=== PATIENT | male | born 1960 | race Caucasian/White ===

== ENCOUNTER 2017-06-02 19:41 | Emergency (ER) | payer OTHER ==
[~2017-06-02 19:41] MED LIST: BACLOFEN20 MG PO; FER300 PO; HYDROXYZINE HYD25 MG PO; LASIX20 MG PO; LISINOPRIL20 MG PO; MELOXICAM7.5 M1 PO; MIRTAZAPINE15 M2 PO; RISPERIDONE3 M2 PO; TRAMADOL HCL50 MG PO; VITC PO
== END 2017-06-02 23:03 | disposition other institution (70) ==
LOC: ED 19:41
DX: Z02.89 Encounter for other administrative examinations (principal)

== ENCOUNTER 2017-06-02 19:41 | Emergency (ER) | payer MEDICAID ==
[2017-06-02 23:03] VITALS: BP 133/92
== END 2017-06-02 23:06 | disposition other institution (70) ==
LOC: ED 19:41
DX: I10 Essential (primary) hypertension (principal); J45.909 Unspecified asthma, uncomplicated; M19.90 Unspecified osteoarthritis, unspecified site; B19.20 Unspecified viral hepatitis C without hepatic coma; Z86.79 Personal history of other diseases of the circulatory system
CPT/HCPCS: J1885; J3490

== ENCOUNTER 2018-05-30 13:53 | Inpatient (IN) | payer OTHER ==
[~2018-05-30] VITALS: Ht 162.6 cm; Wt 69.2 kg
[~2018-05-30 13:53] MED LIST changes: -BACLOFEN20 MG PO
[2018-05-30 13:59] VITALS: Ht 162.6 cm; Wt 69.2 kg
[2018-05-30 15:15] LABS: microscopic required? NO
[2018-05-30 15:27] LABS: UA SPECIFIC GRAVITY 1.015 (1.005-1.035); urine erythrocyte NEGATIVE (NEGATIVE)
[2018-05-30 15:32] LABS: CARBON DIOXIDE 21.9 mmol/L (21-32); CHLORIDE SERUM 101 mmol/L (98-107); CREATININE SERUM 0.8 mg/dL (0.7-1.3); GFR1 > 60 mL/min; GLUCOSE SERUM 92 mg/dL (74-106); POTASSIUM SERUM 4.4 mmol/L (3.5-5.1); SODIUM SERUM 136 mmol/L (136-145)
[2018-05-30 15:34] LABS: AMPHETAMINE QUAL UR NONE DETECTED (See below)
[2018-05-30 15:35] LABS: BASOPHIL % 0.4 % (0-2); PLATELET COUNT 446 x10^3mcL (130-400); RED CELL DISTRIBUTION WIDTH 16.2 % (11.5-14.5)
[2018-05-30 15:38] LABS: ALBUMIN 3.6 g/dL (3.4-5.0); ALKALINE PHOSPHATASE 106 U/L (46-116); ALT/SGPT 79 U/L (16-63); AST/SGOT 81 U/L (15-37); BILIRUBIN TOTAL 0.8 mg/dL (0.20-1.00); TOTAL PROTEIN, SERUM 7.8 g/dL (6.4-8.2)
[2018-05-30 22:00] VITALS: BP 145/74
[2018-05-31 05:47] VITALS: BP 134/76
[2018-05-31 07:47] LABS: CALCIUM 8.4 mg/dL (8.5-10.1); CHLORIDE SERUM 108 mmol/L (98-107); CREATININE SERUM 0.8 mg/dL (0.7-1.3); GFR1 > 60 mL/min; GLUCOSE SERUM 69 mg/dL (74-106); MAGNESIUM 2.2 mg/dL (1.8-2.4); POTASSIUM SERUM 4.7 mmol/L (3.5-5.1); SODIUM SERUM 142 mmol/L (136-145)
[2018-05-31 08:42] VITALS: BP 130/82
[2018-05-31 09:44] LABS: BASOPHIL % 0.5 % (0-2); PLATELET COUNT 399 x10^3mcL (130-400)
[2018-05-31 09:45] LABS: RED CELL DISTRIBUTION WIDTH 16.1 % (11.5-14.5)
[2018-05-31] MEDS ORDERED: ZESTRIL20 MG PO (11:39)
[2018-05-31] MEDS ORDERED: OMEPRAZOLE40 M1 PO (11:39)
[2018-05-31] MEDS ORDERED: IBUPROFEN400 MG PO (11:40)
[2018-05-31] MEDS ORDERED: CLARITIN10 MG PO (11:40)
[2018-05-31] MEDS ORDERED: PERMETHRIN5% TOP (11:41)
[2018-05-31] MEDS ORDERED: MIRTAZAPINE15 M2 PO (11:41)
[2018-05-31 15:49] VITALS: BP 131/93
[2018-05-31 19:30] VITALS: BP 118/72
[2018-05-31 23:30] VITALS: BP 118/72
[2018-06-01 05:49] VITALS: BP 129/84
[2018-06-01 09:45] VITALS: BP 116/67
[2018-06-01] MEDS ORDERED: DOX100 PO (12:00)
[2018-06-01 17:10] VITALS: BP 112/77
[2018-06-01 19:16] VITALS: BP 113/74
[2018-06-02 06:33] VITALS: BP 120/72
[2018-06-02 08:30] VITALS: BP 100/62
[2018-06-02 16:15] VITALS: BP 107/74
[2018-06-02 21:00] VITALS: BP 120/76
[2018-06-03 06:00] VITALS: BP 129/82
[2018-06-03 08:56] VITALS: BP 137/87
[2018-06-03 17:54] VITALS: BP 111/63
[2018-06-03 21:03] VITALS: BP 109/77
[2018-06-04 05:41] VITALS: BP 115/66
[2018-06-04 07:19] LABS: ALKALINE PHOSPHATASE 88 U/L (46-116); ALT/SGPT 51 U/L (16-63); AST/SGOT 37 U/L (15-37); BILIRUBIN TOTAL 0.4 mg/dL (0.20-1.00); CALCIUM 8.7 mg/dL (8.5-10.1); CARBON DIOXIDE 26.9 mmol/L (21-32); CHLORIDE SERUM 103 mmol/L (98-107); CREATININE SERUM 0.8 mg/dL (0.7-1.3); GFR1 > 60 mL/min; GLUCOSE SERUM 87 mg/dL (74-106); PHOSPHOROUS 4.1 mg/dL (2.5-4.9); POTASSIUM SERUM 4.8 mmol/L (3.5-5.1); SODIUM SERUM 139 mmol/L (136-145)
[2018-06-04 07:41] LABS: BASOPHIL % 0.8 % (0-2); PLATELET COUNT 387 x10^3mcL (130-400); RED CELL DISTRIBUTION WIDTH 16.6 % (11.5-14.5)
[2018-06-04 09:23] VITALS: BP 129/88
[2018-06-04 17:29] VITALS: BP 99/65
[2018-06-04 23:05] VITALS: BP 97/62
[2018-06-05 06:07] VITALS: BP 135/67
[2018-06-05 09:38] VITALS: BP 113/65
[2018-06-05 17:27] VITALS: BP 128/77
[2018-06-05 23:15] VITALS: BP 110/80
[2018-06-06 06:00] VITALS: BP 106/71
[2018-06-06 10:06] VITALS: BP 107/66
[2018-06-07 06:29] VITALS: BP 107/63
[2018-06-07 09:18] VITALS: BP 112/69
[2018-06-07 13:09] VITALS: BP 112/69
[2018-06-07] MEDS ORDERED: BACLOFEN20 MG PO (13:23)
[2018-06-07 17:27] VITALS: BP 107/66
[2018-06-07 20:56] VITALS: BP 99/61
[2018-06-08 05:24] VITALS: BP 99/69
[2018-06-08 08:15] VITALS: BP 113/81
[2018-06-08 13:05] VITALS: BP 113/81
== END 2018-06-08 14:49 | DRG 145 ==
LOC: ED 13:53 → MU 17:59
PROVIDERS: Internal Medicine Pulmonary Disease; Specialist
DX: J20.9 Acute bronchitis, unspecified (principal); R45.851 Suicidal ideations; F25.0 Schizoaffective disorder, bipolar type; F31.30 Bipolar disorder, current episode depressed, mild or moderate severity, unspecified; I10 Essential (primary) hypertension; S50.812A Abrasion of left forearm, initial encounter; X78.1XXA Intentional self-harm by knife, initial encounter; F15.10 Other stimulant abuse, uncomplicated; F17.210 Nicotine dependence, cigarettes, uncomplicated; B18.2 Chronic viral hepatitis C; F10.10 Alcohol abuse, uncomplicated; J45.909 Unspecified asthma, uncomplicated; F41.9 Anxiety disorder, unspecified; M19.90 Unspecified osteoarthritis, unspecified site; Y90.9 Presence of alcohol in blood, level not specified; Y92.012 Bathroom of single-family (private) house as the place of occurrence of the external cause; Z59.0 Homelessness; Z88.2 Allergy status to sulfonamides; Z88.1 Allergy status to other antibiotic agents; Z90.49 Acquired absence of other specified parts of digestive tract; Z90.81 Acquired absence of spleen; Z91.5 Personal history of self-harm; Y93.89 Activity, other specified; Y99.8 Other external cause status; Z79.899 Other long term (current) drug therapy
CPT/HCPCS: 82962; G0480; Q0092

== ENCOUNTER 2018-06-24 14:44 | Inpatient (IN) | payer OTHER ==
[~2018-06-24] VITALS: Ht 162.6 cm; Wt 68.9 kg
[~2018-06-24 14:44] MED LIST changes: +BACLOFEN20 MG PO; +CLARITIN10 MG PO; +DOX100 PO; +IBUPROFEN400 MG PO; +OMEPRAZOLE40 M1 PO; +PERMETHRIN5% TOP; +ZESTRIL20 MG PO
[2018-06-24 15:07] VITALS: Ht 162.6 cm; Wt 68.9 kg
[2018-06-24 16:05] LABS: microscopic required? NO
[2018-06-24 16:07] LABS: BASOPHIL % 0.4 % (0-2)
[2018-06-24 16:08] LABS: CALCIUM 8.7 mg/dL (8.5-10.1); CARBON DIOXIDE 26.5 mmol/L (21-32); CHLORIDE SERUM 104 mmol/L (98-107); CREATININE SERUM 0.7 mg/dL (0.7-1.3); GFR1 > 60 mL/min; GLUCOSE SERUM 91 mg/dL (74-106); POTASSIUM SERUM 4.2 mmol/L (3.5-5.1); SODIUM SERUM 138 mmol/L (136-145)
[2018-06-24 16:09] LABS: PLATELET COUNT 435 x10^3mcL (130-400); RED CELL DISTRIBUTION WIDTH 15.8 % (11.5-14.5)
[2018-06-24 16:13] LABS: ALKALINE PHOSPHATASE 82 U/L (46-116); ALT/SGPT 65 U/L (16-63); AST/SGOT 73 U/L (15-37); BILIRUBIN TOTAL 0.6 mg/dL (0.20-1.00); TOTAL PROTEIN, SERUM 6.9 g/dL (6.4-8.2)
[2018-06-24 16:15] LABS: ALBUMIN 3.2 g/dL (3.4-5.0)
[2018-06-24 16:32] LABS: urine erythrocyte NEGATIVE (NEGATIVE)
[2018-06-24 16:41] LABS: AMPHETAMINE QUAL UR NONE DETECTED (See below)
[2018-06-25] MEDS ORDERED: SOMA350 MG PO (12:24)
[2018-06-25] MEDS ORDERED: RISPERDAL0.25 MG (12:24)
[2018-06-25 14:26] VITALS: BP 147/100
[2018-06-25 17:40] VITALS: BP 130/77
[2018-06-25 19:57] VITALS: BP 120/72
[2018-06-26 05:58] VITALS: BP 153/69
[2018-06-26 07:58] VITALS: BP 134/89
[2018-06-26 11:54] VITALS: BP 134/89
[2018-06-26 12:16] VITALS: BP 119/85
== END 2018-06-26 12:53 | DRG 756 ==
LOC: ED 14:44 → MU 06-25 12:34 → EDBEDREQ 06-25 12:37 → MU 06-25 14:00
PROVIDERS: Emergency Medicine
DX: R45.851 Suicidal ideations (principal); F25.0 Schizoaffective disorder, bipolar type; I10 Essential (primary) hypertension; M19.90 Unspecified osteoarthritis, unspecified site; F17.210 Nicotine dependence, cigarettes, uncomplicated; F10.20 Alcohol dependence, uncomplicated; B19.20 Unspecified viral hepatitis C without hepatic coma; J30.9 Allergic rhinitis, unspecified; Z59.0 Homelessness; Z91.5 Personal history of self-harm; Z91.14 Patient's other noncompliance with medication regimen; Z90.49 Acquired absence of other specified parts of digestive tract; Z90.81 Acquired absence of spleen; Z88.2 Allergy status to sulfonamides; Z88.1 Allergy status to other antibiotic agents
CPT/HCPCS: G0480

== ENCOUNTER 2018-07-05 23:14 | Emergency (ER) | payer OTHER ==
[~2018-07-05] VITALS: Ht 162.6 cm; Wt 60.8 kg
[~2018-07-05 23:14] MED LIST changes: +RISPERDAL0.25 MG; +SOMA350 MG PO
[2018-07-05 23:24] VITALS: Ht 162.6 cm; Wt 60.8 kg
[2018-07-06 00:05] LABS: CALCIUM 8.5 mg/dL (8.5-10.1); CARBON DIOXIDE 24.4 mmol/L (21-32); CHLORIDE SERUM 105 mmol/L (98-107); CREATININE SERUM 0.8 mg/dL (0.7-1.3); GFR1 > 60 mL/min; GLUCOSE SERUM 81 mg/dL (74-106); POTASSIUM SERUM 4.4 mmol/L (3.5-5.1); SODIUM SERUM 141 mmol/L (136-145)
[2018-07-06 00:16] LABS: BASOPHIL % 0.9 % (0-2); PLATELET COUNT 587 x10^3mcL (130-400); RED CELL DISTRIBUTION WIDTH 14.9 % (11.5-14.5)
[2018-07-06 01:49] VITALS: BP 136/95
== END 2018-07-06 01:49 | disposition home or self-care (01) ==
LOC: ED 23:14
PROVIDERS: Emergency Medicine
DX: S20.219A Contusion of unspecified front wall of thorax, initial encounter (principal); S00.81XA Abrasion of other part of head, initial encounter; S09.8XXA Other specified injuries of head, initial encounter; F10.129 Alcohol abuse with intoxication, unspecified; F31.9 Bipolar disorder, unspecified; I10 Essential (primary) hypertension; Z90.89 Acquired absence of other organs; Z90.49 Acquired absence of other specified parts of digestive tract; Z86.19 Personal history of other infectious and parasitic diseases; Z88.2 Allergy status to sulfonamides; Z88.1 Allergy status to other antibiotic agents; X58.XXXA Exposure to other specified factors, initial encounter; Y93.89 Activity, other specified; Y92.89 Other specified places as the place of occurrence of the external cause; Y99.8 Other external cause status
CPT/HCPCS: 36415; G0480

== ENCOUNTER 2018-07-08 09:05 | Emergency (ER) | payer OTHER ==
[~2018-07-08] VITALS: Ht 162.6 cm; Wt 72.1 kg
[2018-07-08 09:16] VITALS: Ht 162.6 cm; Wt 72.1 kg
[2018-07-08 11:35] VITALS: BP 132/95
== END 2018-07-08 11:35 | disposition home or self-care (01) ==
LOC: ED 09:05
DX: S60.222A Contusion of left hand, initial encounter (principal); M19.032 Primary osteoarthritis, left wrist; F17.210 Nicotine dependence, cigarettes, uncomplicated; J45.909 Unspecified asthma, uncomplicated; I10 Essential (primary) hypertension; F31.9 Bipolar disorder, unspecified; Z90.89 Acquired absence of other organs; Z90.49 Acquired absence of other specified parts of digestive tract; Z88.2 Allergy status to sulfonamides; Z88.1 Allergy status to other antibiotic agents; X58.XXXA Exposure to other specified factors, initial encounter; Y93.89 Activity, other specified; Y92.89 Other specified places as the place of occurrence of the external cause; Y99.8 Other external cause status
CPT/HCPCS: 90714; J1885; Q0092

== ENCOUNTER 2018-09-06 19:51 | Inpatient (IN) | payer OTHER ==
[~2018-09-06] VITALS: Ht 162.6 cm; Wt 69.9 kg
[2018-09-06 20:03] VITALS: Ht 162.6 cm; Wt 69.9 kg
[2018-09-06 22:49] LABS: BASOPHIL % 1.2 % (0-2)
[2018-09-06 22:53] LABS: PLATELET COUNT 487 x10^3mcL (130-400); RED CELL DISTRIBUTION WIDTH 16.3 % (11.5-14.5)
[2018-09-06 23:13] LABS: CALCIUM 9.9 mg/dL (8.5-10.1); CARBON DIOXIDE 24.7 mmol/L (21-32); CHLORIDE SERUM 102 mmol/L (98-107); CREATININE SERUM 0.9 mg/dL (0.7-1.3); GFR1 > 60 mL/min; GLUCOSE SERUM 107 mg/dL (74-106); POTASSIUM SERUM 5.4 mmol/L (3.5-5.1); SODIUM SERUM 139 mmol/L (136-145)
[2018-09-06 23:17] LABS: ALBUMIN 3.8 g/dL (3.4-5.0); ALKALINE PHOSPHATASE 101 U/L (46-116); ALT/SGPT 47 U/L (16-63); AST/SGOT 37 U/L (15-37); BILIRUBIN TOTAL 0.4 mg/dL (0.20-1.00); LIPASE 101 IU/L (73-393); TOTAL PROTEIN, SERUM 7.7 g/dL (6.4-8.2)
[2018-09-07 09:36] VITALS: BP 123/68
[2018-09-07 12:57] VITALS: BP 138/81
[2018-09-07 17:36] VITALS: BP 132/84
[2018-09-07 20:36] VITALS: BP 128/84
[2018-09-08 05:21] VITALS: BP 125/75
[2018-09-08 07:19] LABS: BASOPHIL % 0.4 % (0-2)
[2018-09-08 07:45] LABS: PLATELET COUNT 441 x10^3mcL (130-400); RED CELL DISTRIBUTION WIDTH 16.3 % (11.5-14.5)
[2018-09-08 08:06] LABS: CALCIUM 8.4 mg/dL (8.5-10.1); CHLORIDE SERUM 107 mmol/L (98-107); CREATININE SERUM 0.6 mg/dL (0.7-1.3); GFR1 > 60 mL/min; GLUCOSE SERUM 91 mg/dL (74-106); POTASSIUM SERUM 4.3 mmol/L (3.5-5.1); SODIUM SERUM 140 mmol/L (136-145)
[2018-09-08 10:14] VITALS: BP 132/86
[2018-09-08 14:19] VITALS: BP 152/87
[2018-09-08 17:21] VITALS: BP 148/85
[2018-09-08 21:50] VITALS: BP 132/85
[2018-09-09 05:32] VITALS: BP 128/87
[2018-09-09 06:58] LABS: BASOPHIL % 0.5 % (0-2)
[2018-09-09 07:13] LABS: PLATELET COUNT 458 x10^3mcL (130-400); RED CELL DISTRIBUTION WIDTH 16.4 % (11.5-14.5)
[2018-09-09 07:19] LABS: CALCIUM 8.4 mg/dL (8.5-10.1); CARBON DIOXIDE 24.8 mmol/L (21-32); CHLORIDE SERUM 106 mmol/L (98-107); CREATININE SERUM 0.8 mg/dL (0.7-1.3); GFR1 > 60 mL/min; GLUCOSE SERUM 93 mg/dL (74-106); POTASSIUM SERUM 4.3 mmol/L (3.5-5.1); SODIUM SERUM 139 mmol/L (136-145)
[2018-09-09 10:08] VITALS: BP 131/76
[2018-09-09 13:14] VITALS: BP 131/76
[2018-09-09 14:27] VITALS: BP 114/68
[2018-09-09 16:13] VITALS: BP 113/65
[2018-09-09 20:28] VITALS: BP 111/66
[2018-09-10 04:48] VITALS: BP 116/64
[2018-09-10 08:22] VITALS: BP 133/76
[2018-09-10 11:53] VITALS: BP 123/77
[2018-09-10 12:57] VITALS: BP 123/77
== END 2018-09-10 14:08 | disposition home or self-care (01) | DRG 247 ==
LOC: ED 19:51 → DU 09-07 06:20
PROVIDERS: Emergency Medicine; ADMIT Internal Medicine
PROC: 0D9670Z Drainage of Stomach with Drainage Device, Via Natural or Artificial Opening (ICD-10-PCS; principal; 2018-09-07)
DX: K56.699 Other intestinal obstruction unspecified as to partial versus complete obstruction (principal); B15.9 Hepatitis A without hepatic coma; F17.210 Nicotine dependence, cigarettes, uncomplicated; F31.9 Bipolar disorder, unspecified; J45.909 Unspecified asthma, uncomplicated; I25.10 Atherosclerotic heart disease of native coronary artery without angina pectoris; K59.00 Constipation, unspecified; I10 Essential (primary) hypertension; K27.9 Peptic ulcer, site unspecified, unspecified as acute or chronic, without hemorrhage or perforation; M19.90 Unspecified osteoarthritis, unspecified site; F32.9 Major depressive disorder, single episode, unspecified; B18.2 Chronic viral hepatitis C; Z88.2 Allergy status to sulfonamides; Z88.1 Allergy status to other antibiotic agents; Z90.49 Acquired absence of other specified parts of digestive tract; Z90.81 Acquired absence of spleen; Z87.11 Personal history of peptic ulcer disease; Z59.0 Homelessness
CPT/HCPCS: C9113; J7030; Q0092; Q0162

== ENCOUNTER 2019-06-07 17:02 | Inpatient (IN) | payer OTHER ==
[~2019-06-07] VITALS: Ht 165.1 cm; Wt 65.0 kg
[2019-06-07 17:04] VITALS: Ht 165.1 cm; Wt 65.0 kg
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
--- NOTE | 2019-06-07 17:51 | NUR ---
MD DAMON AT BEDSIDE PERFORMING MSE
--- NOTE | 2019-06-07 18:21 | NUR ---
PT STS HAS MEANS TO PAY FOR TAXI IF D/C D/T ''NO ONE BEING ABLE TO DRIVE HIM HOME''
--- NOTE | 2019-06-07 18:27 | NUR ---
350 ML OF YELLOW CLEAR URINE NOTED IN URINAL
--- NOTE | 2019-06-07 18:50 | NUR ---
MD DAMON AT BEDSIDE DISCUSSING PLAN OF CARE
--- NOTE | 2019-06-07 19:00 | NUR ---
BLADDER SCAN TX COMPLETED PER MD DAMON VERBAL ORDER S/P VOID, RESIDUAL URINE APPROX 96 CC, MD DAMON MADE AWARE
--- NOTE | 2019-06-07 19:01 | NUR ---
PT ROADTESTED, PT AMUBLATORY WITH STEADY GAIT WITH USE OF CANE, PER PT "JUST HURTS MY BACK TO WALK" MD DAMON MADE AWARE
--- NOTE | 2019-06-07 19:07 | NUR ---
PER LABOR COMMISSIONER, Nancy GARCIA HAND 18 G IV "CAME OUT DURING TRANSFER FROM ED [facility] TO CT BED, IV D/C, ANGIO CATH INTACT, BLEEDING CONTROLLED
--- NOTE | 2019-06-07 19:08 | NUR ---
REPORT GIVEN TO KRISTY QUEVEDO RN TO RESUME CARE OF PT AT THIS TIME
[2019-06-07 19:22] LABS: BASOPHIL % 0.6 % (0-2)
[2019-06-07 19:24] LABS: RED CELL DISTRIBUTION WIDTH 15.9 % (11.5-14.5)
[2019-06-07 19:25] LABS: PLATELET COUNT 673 x10^3mcL (130-400)
[2019-06-07 19:30] LABS: CALCIUM 7.7 mg/dL (8.5-10.1); CARBON DIOXIDE 27.1 mmol/L (21-32); CHLORIDE SERUM 104 mmol/L (98-107); CREATININE SERUM 0.8 mg/dL (0.7-1.3); GFR1 > 60 mL/min; GLUCOSE SERUM 87 mg/dL (74-106); SODIUM SERUM 137 mmol/L (136-145)
--- NOTE | 2019-06-07 19:30 | NUR ---
FIRST CONTACT WITH PT AT THIS TIME. PT RESTING IN GURNEY WITH EYES CLOSED; AROUSABLE TO VERBAL STIMULI. RESP E/U, APPEARS IN NO ACUTE DISTRESS. VSS. PT RATES PAIN 0/10 AT THIS TIME; AWAITING CT SCAN. BLANKET GIVEN FOR COMFORT.
[2019-06-07 19:34] LABS: ALKALINE PHOSPHATASE 113 U/L (46-116); ALT/SGPT 51 U/L (16-63); AST/SGOT 40 U/L (15-37); BILIRUBIN TOTAL 0.21 mg/dL (0.20-1.00)
[2019-06-07 19:35] LABS: ALBUMIN 2.8 g/dL (3.4-5.0); TOTAL PROTEIN, SERUM 5.7 g/dL (6.4-8.2)
--- NOTE | 2019-06-07 19:44 | NUR ---
PT TO RADIOLOGY FOR CT SCAN VIA WC
--- NOTE | 2019-06-07 19:51 | NUR ---
PT RETURNED FROM CT
--- NOTE | 2019-06-07 20:16 | NUR ---
PT ENDORSES DARK TARRY STOOL X2 WEEKS
--- NOTE | 2019-06-07 20:17 | NUR ---
DR LOPEZ AT BEDSIDE DISCUSSING PLAN OF CARE WITH PT
--- NOTE | 2019-06-07 21:00 | NUR ---
PCXR IN PROGRESS AT BEDSIDE
--- NOTE | 2019-06-07 21:30 | NUR ---
RECEIVED PT FROM ED VIA WHEELCHAIR, CAME IN DUE TO LOWER BACK PAIN. AAOX4. STATED THAT HE HAS MILD HEADACHE AND DIZZINESS. ABLE TO FOLLOW COMMANDS. NO SOB NOTED, LUNG SOUNDS CTA. DENIES CHEST PAIN/PRESSURE, DC=75. DENIES ABDOMINAL PAIN/NAUSEA/VOMITING. ABDOMEN IS SOFT. STATED THAT HE HAS BLACK STOOLS X2 WEEKS. BOWEL SOUNDS ACTIVE. VOIDS. IV SITE ON THE LAC IS PATENT AND INTACT. SIDE RAILS UPX2. CALL LIGHT ON REACH. HOB ELEVATED AT 30 DEG. ENDORSED TO PRIMARY NURSE LEIGH FOR CONTINUITY OF CARE
--- NOTE | 2019-06-07 21:32 | NUR ---
PATIENT ARRIVED FROM ED VIA W/C IN STABLE CONDITION.JEIMY WILL ADMIT PATIENT,THANK YOU.MADE COMFORTABLE IN BED.
[2019-06-07 21:48] VITALS: BP 127/81
--- NOTE | 2019-06-07 22:25 | NUR ---
PATIENT IVF D5 1/2 NS AT 100 CC/ HOUR.AND ALL INITIAL MEDS ORDERED GIVEN WITH NO INCIDENT,PATIENT NPO X MED,JUST GIVEN LIQUID SOUP,WAS BEGGING FOR IT,BUT REMINDED NPO AFTER MIDNIGHT,DR Joseluis RASCON GI CONSULT.FLU VACCINE GIVEN ALSO R ARM.HAS CANE FROM HOME,CLAIMED HE IS HOMELESS.NO SKIN BREAKDOWN.VOIDING,URINAL AT BEDSIDE,REMINDED JUST TO USE IT AND NOT GET UP,FALL PRECAUTION.
--- NOTE | 2019-06-08 05:10 | NUR ---
PATIENT USING URINAL WELL AT BEDSIDE.REMAINS NPO.I AND O MEASURED.
[2019-06-08 05:35] VITALS: BP 135/86
--- NOTE | 2019-06-08 06:56 | NUR ---
AM MEDS GIVEN.DO NOT WANT WEAR SCD'S.WILL ENDORSE TO NEXT SHIFT.
--- NOTE | 2019-06-08 07:10 | NUR ---
RECEIVED PT FROM NIGHT NURSE. PT IS LAYING DOWN IN BED WITH HOB UP RESTING WITH EYES CLOSED. PT LOOKS TO BE IN NO ACUTE DISTRESS AT THIS TIME AND DENIES ANY PAIN. RESPIRATIONS EVEN AND UNLABORED ON ROOM AIR. IV SITE PATENT WITH NO SIGNS OF ERYTHEMA OR SWELLING WITH IV FLUIDS INFUSING. CALL LIGHT WITHIN REACH. WILL CONTINUE TO MONITOR.
[2019-06-08 07:56] LABS: BASOPHIL % 0.1 % (0-2)
[2019-06-08 08:00] LABS: RED CELL DISTRIBUTION WIDTH 16.5 % (11.5-14.5)
[2019-06-08 08:07] LABS: ALKALINE PHOSPHATASE 81 U/L (46-116); ALT/SGPT 43 U/L (16-63); AST/SGOT 35 U/L (15-37); BILIRUBIN TOTAL 0.3 mg/dL (0.20-1.00); CALCIUM 7.5 mg/dL (8.5-10.1); CARBON DIOXIDE 25.6 mmol/L (21-32); CHLORIDE SERUM 107 mmol/L (98-107); CREATININE SERUM 0.7 mg/dL (0.7-1.3); GFR1 > 60 mL/min; GLUCOSE SERUM 100 mg/dL (74-106); LIPASE 158 IU/L (73-393); POTASSIUM SERUM 4.2 mmol/L (3.5-5.1); SODIUM SERUM 141 mmol/L (136-145)
[2019-06-08 08:11] VITALS: BP 139/86
[2019-06-08 08:11] LABS: ALBUMIN 2.4 g/dL (3.4-5.0); TOTAL PROTEIN, SERUM 5.3 g/dL (6.4-8.2)
[2019-06-08 08:24] LABS: PLATELET COUNT 676 x10^3mcL (130-400)
--- NOTE | 2019-06-08 09:35 | NUR ---
DR. RASCON CAME IN AND SPOKE TO PT ABOUT EGD. PT AGREEABLE. PT SIGNED EGD CONSENT. CHECKLIST COMPLETED AND REPORT GIVEN TO GI. WILL CONITNUE TO MONITOR.
--- NOTE | 2019-06-08 09:52 | NUR ---
PT TAKEN DOWN TO GI FOR EGD. PT IS H/L AND SCD DISCONNECTED.
--- NOTE | 2019-06-08 11:00 | NUR ---
PT RETURNED FROM GI LAB. PT IS DROWSY BUT ABLE TO AMBULATE. ASSISTED PT BACK TO BED. PT HAD A BOWEL MOVEMENT, REMOVED UNDERGARMENTS AND CLEANED UP PT. PT MADE COMFORTABLE IN BED. CURRENT VITALS ARE TEMP: 97.2, HR: 80, BP: 113/78, MAP: 85, RR: 14, O2: 99 ON ROOM AIR. RESPIRATIONS EVEN AND UNLABORED. PT EASILY AROUSABLE TO TACTILE STIMULI. PT RESTING IN BED WITH HOB UP AT THIS TIME. IV FLUIDS INFUSING TO IV. WILL CONTINUE TO MONITOR.
--- NOTE | 2019-06-08 12:40 | NUR ---
PER DR. HOPE, ADVANCE PT'S DIET TO A FULL LIQUID DIET.
--- NOTE | 2019-06-08 13:09 | NUR ---
PT IS LAYING DOWN IN BED RESTING WITH EYES CLOSED. PT LOOKS TO BE IN NO ACUTE DISTRESS AT THIS TIME. RESPIRATIONS EVEN AND UNLABORED ON ROOM AIR. PT EASILY AROUSABLE. BED IN LOWEST POSITION, WILL CONTINUE TO MONITOR.
--- NOTE | 2019-06-08 16:41 | NUR ---
COLONOSCOPY CONSET SIGNED AND PUT INTO PT'S CHART. PT AWARE OF COLONOSCOPY SCHEDULED FOR 06/09 AND IS AGREEABLE.
[2019-06-08 17:04] VITALS: BP 125/73
--- NOTE | 2019-06-08 19:30 | NUR ---
ENDORSED TO NURSE NIELSEN
--- NOTE | 2019-06-08 19:33 | NUR ---
RECEIVED PT FROM PREVIOUS SHIFT. DENIES PAIN. DENIES SOB ON RA. IV PATENT AND INFUSING D5 1/2 NS AT 100ML/HR WITH NO S/S OF INFILTRATION. CALL LIGHT WITHIN REACH, BED IN LOW POSITION. WILL CONTINUE TO MONITOR.
[2019-06-08 21:33] VITALS: BP 116/77
--- NOTE | 2019-06-09 00:01 | NUR ---
PT GIVEN FIRST DOSE OF BOWEL PREP. TOLERATED WELL.
--- NOTE | 2019-06-09 00:31 | NUR ---
PT RESTING IN NO ACUTE DISTRESS. RR EVEN AND UNLABORED. CALL LIGHT WITHIN REACH, BED IN LOW POSITION. WILL CONTINUE TO MONITOR.
--- NOTE | 2019-06-09 03:01 | NUR ---
PT REFUSING SECOND DOSE OF BOWEL PREP. INFORMED PATIENT THAT PROCEDURE CAN NOT BE DONE IF BM ISN'T CLEAR. PT VERBALIZED UNDERSTANDING.
--- NOTE | 2019-06-09 05:01 | NUR ---
PT WILLING TO TAKE SECOND DOSE OF BOWEL PREP. BM NOT CLEAR AT THIS TIME.
[2019-06-09 05:28] VITALS: BP 136/84
[2019-06-09 06:34] LABS: CALCIUM 7.9 mg/dL (8.5-10.1); CARBON DIOXIDE 28.3 mmol/L (21-32); CHLORIDE SERUM 109 mmol/L (98-107); CREATININE SERUM 0.8 mg/dL (0.7-1.3); GFR1 > 60 mL/min; GLUCOSE SERUM 101 mg/dL (74-106); POTASSIUM SERUM 4.7 mmol/L (3.5-5.1); SODIUM SERUM 143 mmol/L (136-145)
--- NOTE | 2019-06-09 07:27 | NUR ---
RECIEVED REPORT FROM [facility] NURSE. PATIENT SITTING UP IN BED WITH BOWEL PREP MEDICATION DRINK SITTING ON FLOOR. BOWEL MOVEMENTS NOT CLEAR. PATIENT ENCOURAGED TO CONTINUE DRINKING BOWEL PREP. MAY NOT BE READY FOR COLONOSCOPY LATER IN THE DAY. EDUCATION GIVEN REGARDING PREPROCEDURE COMPLIANCE. SAFETY PRECAUTIONS IN PLACE. WILL CONTINUE TO MONITOR.
[2019-06-09 07:28] LABS: BASOPHIL % 0.2 % (0-2)
[2019-06-09 07:33] LABS: RED CELL DISTRIBUTION WIDTH 16.1 % (11.5-14.5)
[2019-06-09 07:35] LABS: PLATELET COUNT 798 x10^3mcL (130-400)
--- NOTE | 2019-06-09 07:45 | NUR ---
RECIEVED A CRITICAL RESULT FROM LAB ON THIS PATIENT. CRITICAL PLATELET VALUE OF [phone] NOTED. I PHONED THE PHYSICIAN'S OFFICE. I WAS ABLE TO SPEAK WITH THE PUBLIC HEALTH CLINICAL NURSE SPECIALIST AND REQUESTED TO SPEAK WITH THE PHYSICIAN REGARDING PATIENT CARE. PUBLIC HEALTH CLINICAL NURSE SPECIALIST REPORTED THAT COMPLIANCE ATTORNEY PHYSICIAN CURRENTLY UNAVAILABLE BUT WILL CALL BACK SOON POSSIBLE.
[2019-06-09 08:22] VITALS: BP 139/86
--- NOTE | 2019-06-09 09:00 | NUR ---
SPOKE WITH DR. RASCON ABOUT PATIENT'S BOWEL PREP. DR. RASCON TO POSSIBLY CANCEL SCHEDULED COLONOSCOPY DUE TO LACK OF SUFFICIENT BOWEL PREP.
--- NOTE | 2019-06-09 10:28 | NUR ---
SPOKE WITH GI OVER PHONE AND WAS NOTIFIED THAT COLONOSCOPY PROCEDURE HAS BEEN CANCELED DUE TO PATIENT STILL HAVING SOLID BOWEL MOVEMENTS.
[2019-06-09 13:37] VITALS: BP 139/86
[2019-06-09 16:31] VITALS: BP 127/72
--- NOTE | 2019-06-09 19:38 | NUR ---
PATIENT'S IV REMOVED INTACT IN PREPARATION FOR DISCHARGE. CLOTHING, FOOD, AND BUS PASSES PROVIDED FOR PATIENT. PATIENT MADE PHONE CALL TO FRIEND FOR [employer]CHIT[employer]. ALL BELONGINGS RETRIEVED BY PATIENT. PATIENT ESCORTED TO LOBBY VIA WHEELCHAIR BY JEROME MASTERSON.
== END 2019-06-09 19:24 | disposition home or self-care (01) | DRG 241 ==
LOC: ED 17:02 → MU 20:57
PROVIDERS: Internal Medicine Gastroenterology; Internal Medicine Pulmonary Disease; Student in an Organized Health Care Education/Training Program; ADMIT Internal Medicine Pulmonary Disease
PROC: 0DB68ZX Excision of Stomach, Via Natural or Artificial Opening Endoscopic, Diagnostic (ICD-10-PCS; principal; 2019-06-08 09:00)
DX: K29.81 Duodenitis with bleeding (principal); E46 Unspecified protein-calorie malnutrition; D62 Acute posthemorrhagic anemia; B18.2 Chronic viral hepatitis C; F31.9 Bipolar disorder, unspecified; I25.10 Atherosclerotic heart disease of native coronary artery without angina pectoris; I10 Essential (primary) hypertension; G89.29 Other chronic pain; J45.909 Unspecified asthma, uncomplicated; F10.10 Alcohol abuse, uncomplicated; M54.9 Dorsalgia, unspecified; T39.395A Adverse effect of other nonsteroidal anti-inflammatory drugs [NSAID], initial encounter; M19.90 Unspecified osteoarthritis, unspecified site; F17.210 Nicotine dependence, cigarettes, uncomplicated; Z59.0 Homelessness; Z79.1 Long term (current) use of non-steroidal anti-inflammatories (NSAID); Z79.899 Other long term (current) drug therapy; Z88.2 Allergy status to sulfonamides; Z88.1 Allergy status to other antibiotic agents; Z90.49 Acquired absence of other specified parts of digestive tract; Z90.81 Acquired absence of spleen; Z87.11 Personal history of peptic ulcer disease; Z23 Encounter for immunization; Y92.89 Other specified places as the place of occurrence of the external cause
CPT/HCPCS: 43235; 90658; C9113; G0378; J0696; J1200; J1610; J1885; J2250; J2310; J3010; J3490; J7060; Q0092

== ENCOUNTER 2020-06-06 16:06 | Emergency (ER) | payer OTHER ==
[~2020-06-06] VITALS: Ht 172.7 cm; Wt 68.0 kg
[2020-06-06 16:11] VITALS: BP 136/98; Ht 172.7 cm; Wt 68.0 kg
== END 2020-06-06 17:30 | disposition left against medical advice (07) ==
LOC: ED 16:06
DX: F10.129 Alcohol abuse with intoxication, unspecified (principal); J45.909 Unspecified asthma, uncomplicated; I10 Essential (primary) hypertension; Z86.19 Personal history of other infectious and parasitic diseases; Z90.89 Acquired absence of other organs; Z88.2 Allergy status to sulfonamides; Z88.1 Allergy status to other antibiotic agents
CPT/HCPCS: 82962

== ENCOUNTER 2020-08-09 17:31 | Emergency (ER) | payer OTHER, SELFPAY ==
[~2020-08-09] VITALS: Ht 165.1 cm; Wt 63.5 kg
[2020-08-09 17:33] VITALS: Ht 165.1 cm; Wt 63.5 kg
[2020-08-09 18:43] VITALS: BP 168/104
== END 2020-08-09 18:43 | disposition home or self-care (01) ==
LOC: ED 17:31
DX: J45.909 Unspecified asthma, uncomplicated (principal); M79.10 Myalgia, unspecified site; I10 Essential (primary) hypertension; M19.90 Unspecified osteoarthritis, unspecified site; Z88.2 Allergy status to sulfonamides; Z90.89 Acquired absence of other organs; Z20.828 Contact with and (suspected) exposure to other viral communicable diseases; Z90.49 Acquired absence of other specified parts of digestive tract
CPT/HCPCS: U0003